=== PATIENT | female | born 1980 | race Caucasian/White ===

== ENCOUNTER 2018-06-15 10:27 | Emergency (ER) | payer OTHER ==
[~2018-06-15] VITALS: Ht 160 cm; Wt 56.7 kg
[2018-06-15] MEDS ORDERED: NORCO 7.5-3251 EACH PO (10:46)
[2018-06-15] MEDS ORDERED: IBUPROFEN 400400 M2 PO (10:47)
[2018-06-15] MEDS ORDERED: MEDROLDOSEPACK PO (10:55)
[2018-06-15] MEDS ORDERED: CITRATE OF MAG296 M1 (11:01)
[2018-06-15 14:08] LABS: HEMOGLOBIN 15.5 gm/dL (12.0-15.0); MCH 29.9 pg (26.0-34.0); MCHC 33.7 g/dL (28.0-37.0); MCV 88.6 fL (80.0-100.0); RBC 5.19 mil/uL (4.20-5.00); RDW 13.1 % (10.5-14.5)
[2018-06-15 14:11] LABS: CALCIUM 9.2 mg/dL (8.5-10.1); CREATININE 0.9 mg/dL (0.6-1.0)
[2018-06-15] MEDS ORDERED: FLEXERIL PO (17:14)
[2018-06-15] MEDS ORDERED: PERCOCET 7.5-31 EACH PO (17:14)
[2018-06-15] MEDS ORDERED: PREDNISONE 20 M20 MG PO (17:14)
[2018-06-15] MEDS ORDERED: MOBIC15 MG PO (17:14)
[2018-06-15] MEDS ORDERED: SENNA-DOCUSATE1 EACH PO (17:14)
[2018-06-15 17:27] VITALS: BP 132/93
== END 2018-06-15 17:55 | disposition home or self-care (01) ==
LOC: ER 10:27
PROVIDERS: Emergency Medicine
DX: M54.42 Lumbago with sciatica, left side (principal); M25.552 Pain in left hip; R11.0 Nausea; Z88.5 Allergy status to narcotic agent